=== PATIENT | female | born 1955 | race Caucasian/White ===

== ENCOUNTER 2024-11-13 07:50 | Day surgery (SDC) | payer SELFPAY ==
[2024-11-12 14:35] VITALS: BMI 26.3
[2024-11-13] VITALS (9 sets, daily range): BP systolic 104–172; BP diastolic 59–86; PULSE 68–85; RESP 15–20; TEMP 36.4–36.6; O2SAT 96–100; BMI 25.4
[2024-11-13] MEDS: DiphenhydrAMINE INJ 50 MG/ML VIAL 25 MG IV (10:00)
[2024-11-13] MEDS: fentaNYL CIT INJ 50 mCg/ML AMP 2ML (ASD USE ONLY) IV (10:00)
[2024-11-13] MEDS: MIDAZOLAM INJ 1 MG/ML VIAL 2 ML (ASD USE ONLY) 2 MG IV (10:00)
[2024-11-13] MEDS: ONDANSETRON INJ 2 MG/ML INJ 2 ML 4 MG IV (10:09)
--- NOTE | 2024-11-13 10:54 | SUR.PHASEII ---
1050 Pt more awake and alert. Denies pain or N/V. Abd remains soft. Pt rubén PO fluids.
--- NOTE | 2024-11-13 12:54 | SUR.PHASEII ---
1120 Pt assessment unchanged. No complaints. Amb with steady gait. Able to dress self. Pt and family given dc instructions. Both state understanding. Pt meets dc criteria-to home.
== END 2024-11-13 11:20 | disposition home or self-care (01) ==
PROVIDERS: PCP Family Medicine; Referring Provider Specialist; Visit Provider Specialist
PROC: 0DBE8ZX Excision of Large Intestine, Via Natural or Artificial Opening Endoscopic, Diagnostic (ICD-10-PCS; CPT 45380; principal; 2024-11-13 10:30)
DX: Z12.11 Encounter for screening for malignant neoplasm of colon (principal); K64.4 Residual hemorrhoidal skin tags
CPT/HCPCS: 45385; J1200; J2250; J2405; J3010